=== PATIENT | female | born 2000 | race Caucasian/White ===

== ENCOUNTER 2022-12-04 05:22 | Emergency (ER) | payer BC ==
[~2022-12-04] VITALS: Ht 167.6 cm; Wt 63.6 kg
[~2022-12-04 05:22] MED LIST: ADDERALL20 MG PO; CEPHALEXIN500 M1 PO
[2022-12-04 05:31] VITALS: BP 155/93; TEMP 98.1
[2022-12-04 06:04] LABS: BASO # 0.1 K/mm3 (0.0-0.2); BASO % 0.7 % (0.0-2.0); EOS # 0.2 K/mm3 (0.0-0.7); EOS % 2.2 % (0.0-4.0); GRAN # 4.3 K/mm3 (1.4-6.5); GRAN % 59.5 % (42.2-75.2); HEMOGLOBIN 12.1 g/dl (12.0-15.0); LYMPH # 2.3 K/mm3 (1.2-3.4); LYMPH % 31.4 % (20.0-51.0); MEAN CELL VOLUME 84 fl (80.0-95.0); MEAN CORPUSCULAR HEMOGLOBIN 30 pg (26-32); MEAN CORPUSCULAR HGB CONC 36 g/dl (33.0-37.0); MONO # 0.4 K/mm3 (0.1-0.6); MONO % 6.1 % (1.7-9.3); PLATELET COUNT 200 K/mm3 (130-400); RED BLOOD COUNT 3.98 M/mm3 (4.10-5.30); REDCELL DISTRIBUTION WIDTH-CV 11.8 % (11.5-14.5)
[2022-12-04 06:05] LABS: HEMATOCRIT 33.6 % (35.0-45.0)
[2022-12-04 06:22] LABS: ALBUMIN 4.5 gm/dL (3.5-5.0); BILIRUBIN,TOTAL 0.6 mg/dL (0.2-1.2); CALCIUM 9.4 mg/dL (8.4-10.2); CREATININE, serum 0.89 mg/dL (0.57-1.11); POTASSIUM 3.7 mmol/L (3.5-4.5); TOTAL PROTEIN 6.4 gm/dL (6.2-8.1)
[2022-12-04 06:45] VITALS: PULSE 76
== END 2022-12-04 06:45 | disposition home or self-care (01) ==
LOC: COL.ER 05:22
PROVIDERS: Family Medicine
DX: M25.511 Pain in right shoulder (principal); R07.89 Other chest pain; L03.211 Cellulitis of face